=== PATIENT | male | born 1995 | race African-American/Black ===

== ENCOUNTER 2017-12-09 10:59 | Emergency (ER) | payer SELFPAY ==
[~2017-12-09] VITALS: Ht 182.9 cm; Wt 105.0 kg
[2017-12-09 11:51] VITALS: BP 132/82
== END 2017-12-09 12:35 | disposition home or self-care (01) ==
LOC: ER 10:59
DX: R00.2 Palpitations (principal); F15.90 Other stimulant use, unspecified, uncomplicated
CPT/HCPCS: 93005; 99283